=== PATIENT | female | born 1965 | race Caucasian/White ===

== ENCOUNTER 2021-09-20 22:39 | Emergency (ER) | payer OTHER ==
[~2021-09-20] VITALS: Ht 165.1 cm; Wt 117.9 kg
[2021-09-20] MEDS ORDERED: KETOROLAC TROMETHAMINE INJ 60 MG/2 ML VIAL IM ONE ×2 (22:50→23:00)
--- NOTE | 2021-09-20 22:50 | NUR ---
TO ER BED 9. BIBFRIEND C/O L KNEE PAIN, PT STATES, "HURT KNEE 2 WEEKS AGO BUT TODAY HEARD A "POP" AND HAS BEEN UNABLE TO BARE WEIGHT ON IT". 02/28 ON P/S. TOOK MOTRIN WITH LITTLE RELIEF. AWAITING MD KING
--- NOTE | 2021-09-20 23:00 | NUR ---
XRAY AT BEDSIDE
--- NOTE | 2021-09-21 00:25 | NUR ---
Patient discharged to home in stable condition. Written and verbal after care instructions given. Patient verbalizes understanding of instruction.
[2021-09-21 01:24] VITALS: BP 128/70
== END 2021-09-21 01:25 | disposition home or self-care (01) ==
LOC: ER 22:42
DX: M25.562 Pain in left knee (principal)
CPT/HCPCS: 29505; 73564; 93971; 96372; 99284; J1885